=== PATIENT | female | born 1995 ===

== ENCOUNTER 2019-03-23 19:58 | Emergency (ER) | payer OTHER ==
[2019-03-23] MEDS ORDERED: methylPREDNISolone Sodium Succinate 125 MG/2 ML SDV IVPUSH ONE (20:05)
[2019-03-23 20:37] LABS: BLOOD UREA NITROGEN,BUN 9 mg/dL (7.0-18.0); CARBON DIOXIDE,CO2 22.1 mmol/L (21.0-32.0); CHLORIDE,CL 108 mmol/L (98-107); GLUCOSE RANDOM 116 mg/dL (74-106); POTASSIUM,K 3.2 mmol/L (3.5-5.1); SODIUM,NA 145 mmol/L (136-145)
--- NOTE | 2019-03-23 20:55 | EDM.PDOC ---
ED HPI GENERAL MEDICAL PROBLEM - General Chief Complaint: Respiratory Problem Stated Complaint: ASTHMA ATTACK Time Seen by Provider: 03/23/19 20:04 Source of Information: Reports: Patient History Limitations: Reports: No Limitations - History of Present Illness INITIAL COMMENTS - FREE TEXT/NARRATIVE: HISTORY AND PHYSICAL: History of present illness: Patient is a 23-year-old female who presents to the ED today via EMS for concern of feeling short of breath with a history of asthma. Patient states that she has been drinking alcohol tonight with her boyfriend when she started to feel more short of breath. Patient states she has a dulera air inhaler and albuterol inhaler that she has refills for at home and has available to her at home. Patient states she did not take her rescue inhaler with onset of symptoms. Patient denies any other symptoms or concerns. EMS in route did give DuoNeb which was finished before arrival to the ED. Patient denies fever, chills, chest pain, or cough. Denies headache, neck stiff ness, change in vision, syncope, or near syncope. Denies nausea, vomiting, abdominal pain, diarrhea, constipation, or dysuria. Has not noted any blood in urine or stool. Patient has been eating and drinking appropriately. Review of systems: As per history of present illness and below otherwise all systems reviewed and negative. Past medical history: As per history of present illness and as reviewed below otherwise noncontributory. Surgical history: As per history of present illness and as reviewed below otherwise noncontributory. Social history: See social history for further information Family history: As per history of present illness and as reviewed below otherwise noncontributory. Physical exam: General: Patient is alert, oriented, and in no acute distress. Patient sitting comfortably on exam table. HEENT: Atraumatic, normocephalic, pupils equal and reactive bilaterally, negative for conjunctival pallor or scleral icterus, mucous membranes moist, TMs normal bilaterally, throat clear, neck supple, nontender, trachea midline. No drooling or trismus noted. No meningeal signs. No hot potato voice noted. Lungs: Mild wheezing to auscultation of bilateral lung bases, breath sounds equal bilaterally, chest nontender. Heart: S1S2, regular rate and rhythm without overt murmur Abdomen: Soft, nondistended, nontender. Negative for masses or hepatosplenomegaly. Negative for costovertebral tenderness. Pelvis: Stable nontender. Genitourinary: Deferred. Rectal: Deferred. Skin: Intact, warm, dry. No lesions or rashes noted. Extremities: Atraumatic, negative for cords or calf pain. Neurovascular unremarkable. Neuro: Awake, alert, oriented. Cranial nerves II through XII unremarkable. Cerebellum unremarkable. Motor and sensory unremarkable throughout. Exam nonfocal. Notes: Discussed the importance for follow-up with the primary care provider. Voices understanding and is agreeable to plan of care. Denies any further questions or concerns at this time. Diagnostics: CBC, CMP, Serum Hcg, CXR, UA, eKG Therapeutics: Solumedrol (received Duoneb in route) Prescription: Medrol dose pack (has dulera and proair available to her at home) Impression: Asthma exacerbation Plan: 1. Take medication as prescribed. Continue to use your at home inhalers as prescribed to you. 2. You can alternate ibuprofen and Tylenol as directed for pain and discomfort. 3. Follow up with the primary care provider as discussed. Return to the ED as needed and as discussed. Definitive disposition and diagnosis as appropriate pending reevaluation and review of above. - Related Data Home Meds: Home Meds FLUoxetine HCl [Fluoxetine HCl] 20 mg PO DAILY 03/23/19 [History] Gabapentin [Neurontin] 800 mg PO DAILY 03/23/19 [History] Omeprazole 40 mg PO DAILY 03/23/19 [History] methylPREDNISolone [Medrol] 4 mg PO ASDIRECTED #1 dosepk 03/23/19 [Rx] valACYclovir [Valtrex] 1 tab PO ASDIRECTED PRN 03/23/19 [History] Past Medical History Respiratory History: Reports: Asthma Musculoskeletal History: Reports: Back Pain, Chronic Neurological History: Reports: Other (See Below) Other Neuro History: back pain neuropathy Psychiatric History: Reports: Depression Social & Family History - Tobacco Use Smoking Status *Q: Never Smoker ED ROS GENERAL - Review of Systems Review Of Systems: Comprehensive ROS is negative, except as noted in HPI. ED EXAM, GENERAL - Physical Exam Exam: See Below (see dictation) Course - Vital Signs Last Recorded V/S: Last Vital Signs Temp 96.9 F 03/23/19 20:12 Pulse 103 H 03/23/19 20:41 Resp 20 12/03/19 20:41 BP 138/88 03/23/19 20:41 Pulse Ox 97 03/23/19 20:41 - Orders/Labs/Meds Orders: Active Orders 24 hr Category Date Time Status EKG Documentation Completion [RC] STAT Care 03/23/19 20:04 Active Chest 1V Frontal [CR] Stat Exams 03/23/19 20:04 Taken Labs: Laboratory Tests 03/23/19 03/23/19 03/23/19 Range/Units 20:10 20:10 20:10 WBC 10.26 (4.0-11.0) K/uL RBC 5.12 (4.30-5.90) M/uL Hgb 15.9 (12.0-16.0) g/dL Hct 44.1 (36.0-46.0) % MCV 86.1 (80.0-98.0) fL MCH 31.1 (27.0-32.0) pg MCHC 36.1 (31.0-37.0) g/dL RDW Std Deviation 39.3 (28.0-62.0) fl RDW Coeff of Arpan 13 (11.0-15.0) % Plt Count 281 (150-400) K/uL MPV 9.80 (7.40-12.00) fL Neut % (Auto) 46.8 L (48.0-80.0) % Lymph % (Auto) 47.9 H (16.0-40.0) % Mclennan % (Auto) 4.4 (0.0-15.0) % Eos % (Auto) 0.8 (0.0-7.0) % Baso % (Auto) 0.1 (0.0-1.5) % Neut # (Auto) 4.8 (1.4-5.7) K/uL Lymph # (Auto) 4.9 H (0.6-2.4) K/uL Mclennan # (Auto) 0.5 (0.0-0.8) K/uL Eos # (Auto) 0.1 (0.0-0.7) K/uL Baso # (Auto) 0.0 (0.0-0.1) K/uL Sodium 145 (136-145) mmol/L Potassium 3.2 L (3.5-5.1) mmol/L Chloride 108 H (98-107) mmol/L Carbon Dioxide 22.1 (21.0-32.0) mmol/L BUN 9 (7.0-18.0) mg/dL Creatinine 0.8 (0.6-1.0) mg/dL Est Cr Clr Drug Dosing 92.02 mL/min Estimated GFR (MDRD) > 60.0 ml/min Glucose 116 H (74-106) mg/dL Calcium 8.7 (8.5-10.1) mg/dL Total Bilirubin 0.3 (0.2-1.0) mg/dL AST 19 (15-37) IU/L ALT 44 (14-63) IU/L Alkaline Phosphatase 75 (46-116) U/L Total Protein 8.3 H (6.4-8.2) g/dL Albumin 4.5 (3.4-5.0) g/dL Globulin 3.8 (2.6-4.0) g/dL Albumin/Globulin Ratio 1.2 (0.9-1.6) HCG, Qual NEGATIVE (NEG) Meds: Medications Discontinued Medications Generic Name Dose Route Start Last Admin Trade Name Freq PRN Reason Stop Dose Admin Methylprednisolone Sodium Succinate 125 mg 03/23/19 20:05 03/23/19 20:10 Solu-Medrol IVPUSH 03/23/19 20:06 125 mg ONETIME ONE Administration Departure - Departure Time of Disposition: 21:32 Disposition: Home, Self-Care 01 Clinical Impression: Asthma exacerbation Qualifiers: Asthma severity: unspecified severity Asthma persistence: unspecified Qualified Code(s): J45.901 - Unspecified asthma with (acute) exacerbation - Discharge Information Prescriptions: methylPREDNISolone [Medrol] 4 mg PO ASDIRECTED #1 dosepk Referrals: PCP,None [Primary Care Provider] - Forms: ED Department Discharge Additional Instructions: The following information is given to patients seen in the emergency department who are being discharged to home. This information is to outline your options for follow-up care. We provide all patients seen in our emergency department with a follow-up referral. The need for follow-up, as well as the timing and circumstances, are variable depending upon the specifics of your emergency department visit. If you don't have a primary care physician on staff, we will provide you with a referral. We always advise you to contact your personal physician following an emergency department visit to inform them of the circumstance of the visit and for follow-up with them and/or the need for any referrals to a consulting specialist. The emergency department will also refer you to a specialist when appropriate. This referral assures that you have the opportunity for follow-up care with a specialist. All of these measure are taken in an effort to provide you with optimal care, which includes your follow-up. Under all circumstances we always encourage you to contact your private physician who remains a resource for coordinating your care. When calling for follow-up care, please make the office aware that this follow-up is from your recent emergency room visit. If for any reason you are refused follow-up, please contact the [facility] Emergency Department at and asked to speak to the emergency department charge nurse. [facility] [address] [place] [address] [place] [address] 1. Take medication as prescribed. Continue to use your at home inhalers as prescribed to you. 2. You can alternate ibuprofen and Tylenol as directed for pain and discomfort. 3. Follow up with the primary care provider as discussed. Return to the ED as needed and as discussed. - My Orders Last 24 Hours: My Active Orders 03/23/19 20:04 EKG Documentation Completion [RC] STAT Chest 1V Frontal [CR] Stat - Assessment/Plan Last 24 Hours: My Active Orders 03/23/19 20:04 EKG Documentation Completion [RC] STAT Chest 1V Frontal [CR] Stat
--- NOTE | 2019-03-23 21:52 | CR ---
INDICATION: Asthma attack TECHNIQUE: Chest 1 view. COMPARISON: None FINDINGS: Cardiovascular and mediastinum: Heart size and vasculature are normal in caliber and appearance. Mediastinum is within normal limits. Lungs and pleural space: Lungs are clear. No sign of infiltrate or mass. No sign of pleural effusion. No pneumothorax. Bones and soft tissues: Scoliosis with posterior spinal rods. IMPRESSION: No acute pulmonary or cardiac abnormalities. Dictated by Jake Bay MD @ 03/23/2019 9:50:07 PM Dictated by: Jake Bay MD @ 03/23/2019 21:50:13 (Electronically Signed)
== END 2019-03-23 21:40 | disposition home or self-care (01) ==
LOC: MW.ED 19:58
DX: J45.901 Unspecified asthma with (acute) exacerbation (principal); F32.9 Major depressive disorder, single episode, unspecified; Z79.899 Other long term (current) drug therapy
CPT/HCPCS: 36415; 71045; 80053; 84703; 85025; 93005; 96374; 99285; J2930